=== PATIENT | female | born 1970 | race Caucasian/White ===

== ENCOUNTER 2021-01-30 07:44 | Outpatient (REF) | payer OTHER, SELFPAY ==
--- NOTE | ~2021-01-30 | XR_ITS ---
EXAMINATION: XR HIP, LEFT WITH AP PELVIS CLINICAL INFORMATION: Left hip pain. COMPARISON: Portions of the MRI left hip dated 05/15/2020. TECHNIQUE: AP and frog-leg lateral views of the left hip are submitted, together with an AP view of the pelvis. FINDINGS: Bones and soft tissues are normal. No fracture. A minimal accessory ossification center is incidentally seen lateral to the left acetabular roof. Alignment is anatomic. Hip joint space is maintained. Pelvic herniorrhaphy mesh is seen. There are pelvic phleboliths. XR/XR hip LT w PEL1V IMPRESSION: Normal left hip.
== END 2021-01-30 07:45 | disposition home or self-care (01) ==
LOC: HO.HOSX 07:44
PROVIDERS: Visit Provider Physician Assistant
DX: M54.16 Radiculopathy, lumbar region (principal)
CPT/HCPCS: 73502; 99202

== ENCOUNTER → 2021-02-26 13:41 | Outpatient (BNVA) | payer OTHER, SELFPAY | PROVIDERS: PCP Internal Medicine; Visit Provider Internal Medicine | DX: M54.16 Radiculopathy, lumbar region (principal); M25.552 Pain in left hip; G89.29 Other chronic pain | CPT/HCPCS: 99202 ==

== ENCOUNTER 2021-03-12 14:28 | Outpatient (REF) | payer OTHER, SELFPAY ==
--- NOTE | ~2021-03-12 | MR_ITS ---
EXAMINATION: MR LUMBAR SPINE WITHOUT CONTRAST CLINICAL INFORMATION: Left leg radiculopathy and low back pain. COMPARISON: None TECHNIQUE: MRI of the lumbar spine was obtained using routine sequences without contrast. FINDINGS: VERTEBRAL BODIES AND PARASPINAL STRUCTURES: There is a mild leftward curvature of the upper lumbar spine and a rightward curvature of the lower lumbar spine. No compression fractures visible. Slight retrosubluxation evident at the L2-L3 level. There is mild disc space narrowing and reduced intradiscal signal at the L3-L4 level. The remaining discs are well hydrated. The paraspinal soft tissues appear normal. Small renal cysts noted. The imaged bony pelvis appears normal. CONUS MEDULLARIS AND CAUDA EQUINA: Normal, terminating at the level of L1. No lower cord signal abnormality is seen. The cauda equina nerve roots are normal. SPINAL LEVELS: L1-L2: No disc pathology, central canal stenosis, or foraminal narrowing. L2-L3: Mild disc bulge and shallow left subarticular zone disc protrusion impressing upon the left L3 nerve root. Slight bulging disc also contacts but does not distort the right L3 nerve root. Mild facet arthropathy and mild left foraminal narrowing. No central canal stenosis. L3-L4: Mild diffuse disc bulge and dyfn-ju-gxutxshk facet arthropathy with mild central canal stenosis. Focal left subarticular to left foraminal disc protrusion with impression upon the left L4 nerve root. Mild foraminal narrowing, more so on the left side. L4-L5: Ahpi-qy-ycwmeqqd hypertrophic facet arthropathy and very slight disc bulge with encroachment upon the subarticular zones and mild impression upon the traversing L5 nerve roots bilaterally. Focal left subarticular zone disc protrusion also contributes to mass effect upon the left L5 nerve root. Mild central canal stenosis. Mild left foraminal narrowing. L5-S1: Hypertrophic facet arthropathy and minimal annular bulge. No central canal stenosis or foraminal narrowing. MR/MR lumbar spine wo con IMPRESSION: Mild lumbar spondylitic changes and mild rightward curvature of the mid lumbar spine. Shallow left subarticular zone disc protrusion at the L2-L3 level impressing upon the left L3 nerve root. Mild left foraminal narrowing. Disc bulge and facet arthropathy with mild central canal stenosis at the L3-L4 level. Left subarticular to foraminal disc protrusion impresses upon the left L4 nerve root. Mild left foraminal narrowing. Hypertrophic facet arthropathy and very mild disc bulge at L4-L5. Small left subarticular zone disc protrusion contributes to mass effect upon the left L5 nerve root. Mild central canal stenosis and mild left foraminal narrowing.
== END 2021-03-12 14:29 | disposition home or self-care (01) ==
LOC: HO.MRI 14:28
PROVIDERS: Visit Provider Internal Medicine
DX: M54.50 Low back pain, unspecified (principal); M54.16 Radiculopathy, lumbar region
CPT/HCPCS: 72148

== ENCOUNTER → 2021-03-23 09:44 | Outpatient (BNVA) | payer OTHER, SELFPAY | PROVIDERS: PCP Internal Medicine; Visit Provider Internal Medicine ==

== ENCOUNTER 2021-05-09 06:49 | Outpatient (REF) | payer OTHER, SELFPAY ==
--- NOTE | ~2021-05-09 | FL_ITS ---
EXAMINATION: XR FL WITH IMAGES CLINICAL INFORMATION: Radiculopathy. COMPARISON: None TECHNIQUE: Fluoroscopy performed by Dr Perdomo. Fluoroscopy Time: 0.4 minutes. DAP: 1.4 Gycm2. Images: 3. FINDINGS: Initial image demonstrates needle placement and contrast injection adjacent to the left L5 vertebral body. Second lateral image demonstrates needle placement projecting over the spinal canal at the L5-S1 level. FL/FL guidance in treatment room IMPRESSION: Fluoroscopy guidance for pain management procedure.
== END 2021-05-09 06:50 | disposition home or self-care (01) ==
LOC: HO.RADIR 06:49
PROVIDERS: Visit Provider Internal Medicine
DX: M54.16 Radiculopathy, lumbar region (principal)
CPT/HCPCS: 62323; J1100; Q9967

== ENCOUNTER → 2022-04-05 11:15 | Outpatient (BNVA) | payer OTHER, SELFPAY | PROVIDERS: PCP Internal Medicine; Visit Provider Internal Medicine | DX: M25.552 Pain in left hip (principal); M54.16 Radiculopathy, lumbar region; G89.29 Other chronic pain | CPT/HCPCS: 99212 ==

== ENCOUNTER 2022-05-08 04:54 | Outpatient (REF) | payer OTHER, SELFPAY ==
--- NOTE | ~2022-05-08 | FL_ITS ---
EXAMINATION: XR FLUOROSCOPY WITH IMAGES CLINICAL INFORMATION: Left hip pain. COMPARISON: None. TECHNIQUE: Fluoroscopy Supervised By: Angela. Fluoroscopy Time: 0.4 minutes. Cumulative Dose: 12.1 mg. DAP: 1.31 Gycm2. Images: 4. FINDINGS: There is a solitary right hip digital images obtained revealing contrast opacifying soft tissues slightly inferior to the lateral greater tuberosity. There are subsequent 3 digital images obtained revealing needle positioned inferior to left L4 and L3 pedicles with contrast opacifying the soft tissues. No gross bony abnormality seen. FL/FL guidance in treatment room IMPRESSION: Fluoroscopy was provided to referrer for pain management.
--- NOTE | ~2022-05-08 | FL_ITS ---
EXAMINATION: XR FLUOROSCOPY WITH IMAGES CLINICAL INFORMATION: Left hip pain. COMPARISON: None. TECHNIQUE: Fluoroscopy Supervised By: Angela. Fluoroscopy Time: 0.4 minutes. Cumulative Dose: 12.1 mg. DAP: 1.31 Gycm2. Images: 4. FINDINGS: There is a solitary right hip digital images obtained revealing contrast opacifying soft tissues slightly inferior to the lateral greater tuberosity. There are subsequent 3 digital images obtained revealing needle positioned inferior to left L4 and L3 pedicles with contrast opacifying the soft tissues. No gross bony abnormality seen. FL/FL guidance in treatment room IMPRESSION: Fluoroscopy was provided to referrer for pain management.
== END 2022-05-08 04:55 | disposition home or self-care (01) ==
LOC: CF 04:54
PROVIDERS: Visit Provider Internal Medicine
DX: M54.16 Radiculopathy, lumbar region (principal); M25.552 Pain in left hip; G89.29 Other chronic pain
CPT/HCPCS: 20610; 64483; 64484; J1100; J3301

== ENCOUNTER 2023-01-15 11:00 | Outpatient (AMB) | payer OTHER, SELFPAY ==
--- NOTE | 2023-01-15 11:10 | MHC.OFFVIS ---
Intake Vital Signs 01/15/23 11:20 Height 5 ft Weight 172 lb BMI 33.6 Intake Visit Reasons: Newprob-RT upper extremity injury/RT hand Intake Note: Jewell 52 yr old right hand dominant female presents today for a new problem visit for her right hand. States about 3-4 months ago, she accidentally smashed her hand on her husbands trunk door. Report she has bruising and swelling. Currently bruising has improved but she cont's to have pain and weakness on her wrist and pinky. Also mentioned she has tingling in her pinky. Seen in ED and at urgent care who gave pt a brace. Allergies codeine Adverse Reaction (Verified 01/15/23 11:19) unk ibuprofen [From Motrin] Adverse Reaction (Verified 01/15/23 11:19) unk tramadol Adverse Reaction (Verified 01/15/23 11:19) unk Medication List - Last Reconciled 01/15/23 by Mihaela Peguero MD amitriptyline 10 mg PO BEDTIME docusate sodium (Colace) 100 mg PO DAILY valacyclovir 1,000 mg PO TID HPI HPI Comments History of Present Illness Details Seen at 11/11/22 for RUE swelling. Xray there did not report fracture. Injury end of October, truck back door slammed on her hand across the palm. Swelling and bruise on palm and wrist and medial hand. Not on the fingers themselves. Can't put pressure on wrist without pain. Can't grab things. Numbness on right 5th digit. She has wrist splint at home, wears at work. Right handed. Works as REGULATORY SCIENTIST. [ ] numbness [ ] weakness Treatment done so far: NSAIDs - [ ] therapy - [ ] injection - [ ] surgery - [ ] [facility] Medical History (Updated 01/15/23 @ 11:44 by Mihaela Peguero MD) Injury of right hand Chronic left hip pain Hemorrhoids Adenoma of colon Restless leg syndrome Lumbar radiculopathy Gallstone Fibroids Fatty liver DJD (degenerative joint disease), lumbar Back pain Surgical History H/O hernia repair Social History Alcohol intake: never Patient Tobacco Use Status: Never used Tobacco Current occupational status: employed Current occupation: REGULATORY SCIENTIST Physical Exam Vital Signs: BMI result Body Mass Index 33.6 Assessment & Plan Assessment & Plan (1) Hand pain, right: Code(s): M79.641 - Pain in right hand (2) Injury of right hand: Code(s): S69.91XA - Unspecified injury of right wrist, hand and finger(s), initial encounter Plan Independently reviewed Xray films. Do not see fracture in the medial or 5th digit area where she has pain. It did show spurs right 1st IP and MCP joint and possible bony island right 2nd phalanx but that is not where she had injury or pain. Most likelyl she had soft tissue injury 3 months ago that has not healed well yet. Treatment discussed which would include wearing the wrist splint all the time which will allow hand for relative rest. I would send her for hand therapy. She is concerned and wants further imaging. This may be reasonable to get MRI. However discussed that soft tissue injury shown on MRI most likely will need same non surgical treatment discussed. Orders: Orders XR hand RT min 3V Today M79.643 - Pain in unspecified hand MR hand RT wo con Today M79.641 - Pain in right hand, S69.91XA - Unspecified injury of right wrist, hand and finger(s), initial encounter OT Evaluation and Treatment Today M79.641 - Pain in right hand, S69.91XA - Unspecified injury of right wrist, hand and finger(s), initial encounter Coding Level of Care Code New Pt Level 4 (47359) Diagnoses Hand pain, right M79.641 Injury of right hand S69.91XA
[2023-01-15 11:20] VITALS: BMI 33.6
== END 2023-01-15 11:48 | disposition home or self-care (01) ==
PROVIDERS: PCP Internal Medicine; Visit Provider Physical Medicine & Rehabilitation
DX: M79.641 Pain in right hand (principal); S69.91XA Unspecified injury of right wrist, hand and finger(s), initial encounter
CPT/HCPCS: 99204

== ENCOUNTER 2023-01-15 15:56 | Outpatient (REF) | payer OTHER, SELFPAY ==
--- NOTE | ~2023-01-15 | XR_ITS ---
EXAMINATION: XR HAND, RIGHT CLINICAL INFORMATION: Pain COMPARISON: None available. TECHNIQUE: PA, lateral, and oblique views of the right hand. FINDINGS: No acute visible fracture or dislocation. Within the second middle phalanx is a slightly expansile lytic lesion with slight hyperdense components nonspecific though may reflect an epidermal inclusion cyst though this is an atypical location versus other etiology such as a glomus tumors, metastatic etiology not excluded. A punctate periarticular osteophyte is noted along the ulnar margin of the second middle phalanx. Joint space alignment are otherwise maintained. Soft tissues are unremarkable. XR/XR hand RT min 3V IMPRESSION: 1. No acute visible fracture or dislocation. 2. Within the second middle phalanx is a slightly expansile lytic lesion with slight hyperdense components nonspecific though may reflect an epidermal inclusion cyst though this is an atypical location versus other etiology such as a glomus tumors, metastatic etiology also not excluded. Correlation with physical exam. If clinically warranted consider evaluation with MRI.
== END 2023-01-15 15:57 | disposition home or self-care (01) ==
LOC: HO.HOSX 15:56
PROVIDERS: Visit Provider Physical Medicine & Rehabilitation
DX: M79.641 Pain in right hand (principal); S69.91XA Unspecified injury of right wrist, hand and finger(s), initial encounter
CPT/HCPCS: 73130; 99212

== ENCOUNTER 2023-03-08 11:12 | Outpatient (REF) | payer OTHER, SELFPAY ==
--- NOTE | ~2023-03-08 | MR_ITS ---
EXAMINATION: MR HAND WITHOUT CONTRAST, RIGHT CLINICAL INFORMATION: Right hand pain following injury in October of 2022. COMPARISON: Right hand radiographs dated 01/15/2023. TECHNIQUE: Multisequence MR imaging of the right hand was obtained without contrast on a high-field strength scanner. FINDINGS: BONE: Within the second middle phalanx there is an isointense T1 and hyperintense T2 focus with small internal foci of low T1/T2 signal measuring approximately 0.6 x 0.9 x 1.5 cm (AP x ML x CC) and corresponds to the prior radiograph findings. This appears slightly expansile and well marginated without associated marrow edema or periosteal reaction. No soft tissue component. Findings likely represent an enchondroma. No additional lytic or blastic osseous lesion. At the base of the fifth metacarpal there is cortical irregularity with partially fused medial and lateral osseous fragments measuring 0.5 and 0.6 cm, respectively. Associated marrow edema. These extend to the fifth carpometacarpal articular surface and are consistent with subacute/chronic fractures. There is adjacent articular cartilage thinning with mild marrow edema in the hamate. No definite hamate fracture, however, bony detail is somewhat limited. MUSCLES/TENDONS: The visualized flexor and extensor tendons are intact. No transverse tendon tear or tendon retraction. LIGAMENTS: Intact collateral ligaments. SOFT TISSUES: No soft tissue mass or fluid collection. MR/MR hand RT wo con IMPRESSION: 1. Subacute/chronic fractures at the base of the fifth metacarpal with partially fused medial and lateral osseous fragments as well as associated marrow edema. Adjacent articular cartilage thinning with mild marrow edema in the hamate. No definite hamate fracture, however, bony detail is somewhat limited. 2. Probable enchondroma within the second middle phalanx.
== END 2023-03-08 11:13 | disposition home or self-care (01) ==
LOC: HO.MRI 11:12
PROVIDERS: PCP Internal Medicine; Visit Provider Physical Medicine & Rehabilitation
DX: S69.91XA Unspecified injury of right wrist, hand and finger(s), initial encounter (principal)
CPT/HCPCS: 73218

== ENCOUNTER 2023-03-14 10:52 | Outpatient (REF) | payer OTHER, SELFPAY ==
--- NOTE | ~2023-03-14 | XR_ITS ---
EXAMINATION: XR HAND, RIGHT CLINICAL INFORMATION: Pain COMPARISON: MR hand 03/08/23, and radiographs 01/15/2023 TECHNIQUE: 3 views of the hand FINDINGS: The previously described subacute/chronic fracture at the base of the fifth metacarpal, better appreciated on prior MRI. No new fracture or dislocation. Redemonstration of an expansile lytic lesion in the second middle phalanx, better characterized on prior MR.. Joint spaces are maintained. Soft tissues are unremarkable. XR/XR hand RT min 3V IMPRESSION: 1. The previously described subacute/chronic fracture at the base of the fifth metacarpal, better appreciated on prior MRI. No new fracture or dislocation. 2. Redemonstration of an expansile lytic lesion in the second middle phalanx, better characterized on prior MR.
== END 2023-03-14 10:53 | disposition home or self-care (01) ==
LOC: HO.HOSX 10:52
PROVIDERS: Visit Provider Physician Assistant
DX: S62.304A Unspecified fracture of fourth metacarpal bone, right hand, initial encounter for closed fracture (principal); S62.306A Unspecified fracture of fifth metacarpal bone, right hand, initial encounter for closed fracture
CPT/HCPCS: 73130; 99212

== ENCOUNTER 2023-03-14 12:57 | Outpatient (AMB) | payer OTHER, SELFPAY ==
--- NOTE | 2023-03-14 13:10 | A.OFFVIS_ITS ---
Intake Vital Signs 03/14/23 13:11 Height 5 ft Weight 172 lb BMI 33.6 Intake Visit Reasons: ov- RT 4th&5th fx per RB Intake Note: Jewell cunningham 52 year old female presents today for a follow up of right hand 4th&5th fracture. Allergies codeine Adverse Reaction (Verified 03/14/23 13:12) unk ibuprofen [From Motrin] Adverse Reaction (Verified 03/14/23 13:12) unk tramadol Adverse Reaction (Verified 03/14/23 13:12) unk HPI ov- RT 4th&5th fx per RB HPI Details 52 yo female presents to the office toda y for pain in the right hand. She states about 3-4 months ago she hit her hand on a truck and felt immediate pain. She was seen by physiatry who obtained an MRI of the right hand which was significant for [facility] Medical History (Updated 03/28/23 @ 13:58 by Zaid Centeno PA-C) Injury of right hand Chronic left hip pain Hemorrhoids Adenoma of colon Restless leg syndrome Lumbar radiculopathy Gallstone Fibroids Fatty liver DJD (degenerative joint disease), lumbar Back pain Surgical History H/O hernia repair Social History Alcohol intake: never Patient Tobacco Use Status: Never used Tobacco Current occupational status: employed Current occupation: ORTHODONTIC TECHNICIAN ASSISTANT Review of Systems Const All systems reviewed & are unremarkable except as noted in HPI and below Physical Exam Vital Signs: BMI result Body Mass Index 33.6 Extrem Other: Right hand normal to inspection. Mild tenderness over the dorsum of the hand. She is able to make a fist and extend all digits. NVI. Results Reviewed Results Reviewed: Xrays were obtained in the office today and personally reviewed by me of the right hand IMPRESSION: 1. The previously described subacute/chronic fracture at the base of the fifth metacarpal, better appreciated on prior MRI. No new fracture or dislocation. 2. Redemonstration of an expansile lytic lesion in the second middle phalanx, better characterized on prior MR. Assessment & Plan Assessment & Plan (1) Metacarpal bone fracture: Code(s): S62.309A - Unspecified fracture of unspecified metacarpal bone, initial encounter for closed fracture Qualifiers: Encounter type: initial encounter Metacarpal bone: unspecified metacarpal Fracture type: closed Metacarpal location: base Plan: Despite the fracture being chronic in nature on xrays and MRI, she continues to have pain and limitations with activity. I encouraged her to work on ROM and music composer strength exercises. If she continues to have pain she will meet with Dr Gaxiola. Patient Instructions: Scribed for Zaid Centeno PA-C, by Casey Samayoa certified medical coder, on 03/14/2023 at 12:45 PM JAZZY. Zaid Burton PA-C, have personally reviewed and agree with the information entered by the scribe. Coding Level of Care Code Est Pt Level 3 (64869) Diagnoses Metacarpal bone fracture S62.309A Encounter type: initial encounter Metacarpal bone: unspecified metacarpal Fracture type: closed Metacarpal location: base
[2023-03-14 13:11] VITALS: BMI 33.6
== END 2023-03-14 13:28 | disposition home or self-care (01) ==
PROVIDERS: PCP Internal Medicine; Visit Provider Physician Assistant
DX: S62.304A Unspecified fracture of fourth metacarpal bone, right hand, initial encounter for closed fracture (principal); S62.306A Unspecified fracture of fifth metacarpal bone, right hand, initial encounter for closed fracture
CPT/HCPCS: 99213